=== PATIENT | female | born 1940 | race Caucasian/White ===

== ENCOUNTER → 2021-02-17 | Outpatient (CLI) | payer MEDICARE, OTHER ==
--- NOTE | 2021-02-18 08:20 | RAD ---
Exam performed: Bone mineral density. Indication: Screening Date of Service: 02/17/2021.Comparison:None available Discussion: Dual absorption densitometry is performed over the left forearm and the findings are as follows. The total bone mineral density in the left forearm is 0.425 which is 79.% of a young adult correspond to a T score of -2.3 Impression: 1. 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
== END ==
LOC: MAMMO 14:23
PROVIDERS: ATTEND Family Medicine
DX: Z12.31 Encounter for screening mammogram for malignant neoplasm of breast (principal); M85.832 Other specified disorders of bone density and structure, left forearm; Z78.0 Asymptomatic menopausal state
CPT/HCPCS: 77063; 77067; 77080